=== PATIENT | female | born 1990 | race Two or more races ===

== ENCOUNTER 2018-11-20 08:02 | Day surgery (SDC) | payer OTHER ==
[2018-11-20] MEDS ORDERED: IBUPROFEN600 MG PO (10:52)
[2018-11-20] MEDS ORDERED: PREMARIN1.25 MG PO (10:52)
== END 2018-11-20 13:50 | disposition home or self-care (01) ==
LOC: CIR.AMB 08:02
DX: N84.0 Polyp of corpus uteri (principal); D25.0 Submucous leiomyoma of uterus